=== PATIENT | male | born 1985 | race American Indian/Alaskan Native ===

== ENCOUNTER 2018-10-17 11:42 | Emergency (ER) | payer MEDICAID ==
[2018-10-17 11:54] VITALS: RESP 16; O2SAT 100
--- NOTE | 2018-10-17 12:52 | C.PDOC ---
History Of Present Illness 33 year old male with no prior psychiatric history presents to the ED via EMS for a psychiatric evaluation. The patient states everyone is out to get me, feels paranoid, and he is worried because he has children. States he is inte rested in psychiatric admission. Presents with no medical complaints at this time. Denies suicidal ideations, homicidal ideations, hearing voices, hallucinations, fever, chills, chest pain, shortness of breath, and any other associated symptoms. Chief Complaint (Nursing): Psychiatric Evaluation History Per: Patient History/Exam Limitations: no limitations Associated Symptoms: Paranoia. denies: Suicidal Thoughts Recent travel outside of the [place]: No Additional History Per: EMS Past Medical History Reviewed: Historical Data, Nursing Documentation, Vital Signs Vital Signs: Last Vital Signs Temp 97.8 F 10/17/18 11:49 Pulse 77 10/17/18 11:49 Resp 16 10/17/18 11:49 BP 134/81 10/17/18 11:49 Pulse Ox 100 10/17/18 11:49 - Medical History PMH: Denies: Chronic Kidney Disease Family History: States: Unknown Family Hx - Social History Hx Alcohol Use: No Hx Substance Use: Yes Review Of Systems Except As Marked, All Systems Reviewed And Found Negative. Constitutional: Negative for: Fever, Chills Eyes: Negative for: Vision Change Cardiovascular: Negative for: Chest Pain, Palpitations, Edema, Light Headedness Respiratory: Negative for: Cough, Shortness of Breath Gastrointestinal: Negative for: Nausea, Vomiting, Abdominal Pain Musculoskeletal: Negative for: Neck Pain, Back Pain Skin: Negative for: Rash Neurological: Negative for: Weakness, Numbness, Headache, Dizziness Psych: Positive for: Other ((+) paranoia. (-) homicidal ideations. (-) hearing voices. (-) hallucinations.). Negative for: Anxiety, Depression, Psychosis, Suicidal ideation, Withdrawal Physical Exam - Physical Exam Appears: Well, Non-toxic, No Acute Distress Skin: Normal Color, Warm, Dry Head: Atraumatic, Normacephalic Eye(s): bilateral: Normal Inspection, PERRL, EOMI Ear(s): Bilateral: Normal Nose: Normal Oral Mucosa: Moist Throat: Normal Neck: Normal ROM, Trachea Midline, Supple Cardiovascular: Rhythm Regular, No Murmur Respiratory: Normal Breath Sounds, No Rales, No Rhonchi, No Wheezing Gastrointestinal/Abdominal: Normal Exam, Soft, No Tenderness Back: Normal Inspection, No Paraspinal Tenderness Extremity: Normal ROM (x4) Extremity: Bilateral: Atraumatic, No Pedal Edema, Normal Color And Temperature, Normal ROM Pulses: Left Radial: Normal, Right Radial: Normal Neurological/Psych: Oriented x3, Normal Speech, Normal Motor, Normal Sensation Gait: Steady ED Course And Treatment - Laboratory Results Result Diagrams: 10/17/18 13:27 10/17/18 13:27 O2 Sat by Pulse Oximetry: 100 (RA) Pulse Ox Interpretation: Normal Medical Decision Making Medical Decision Making: Initial plan: -Labs Urinalysis -UDS Progress/Update: 12:53 Spoke with Crisis who agree to evaluate the patient. 14:45 Patient evaluated by special delivery worker Yanely, who offered inpatient admission, but patient declined, asking for discharge home, states he is feeling much bet ter. Patient continues to deny SI, HI, hallucations. Pt is A&Ox3 and capable of making informed decisions. Patient is psychiatrically cleared for discharge home with the diagnosis of adjustment disorder, per Yanely and Dr. Gao. Patient states that he found out his cheated on him this morning, and just needed to come to the hospital to "get some space" Now admitting to Percocet use this morning, 2 pills. Plan of care discussed with patient, and strict instructions given regarding prescriptions, importance of follow up, and signs to return to Emergency Department, to include SI, HI, chest pain, fever, chills, or any other new/worsening symptoms. Patient verbalizes understanding of discussion. Patient A&Ox3, ambulating with steady gait, stable for discharge home. Disposition - Disposition Referrals: [facility] [Outside] [facility] [Outside] Disposition: HOME/ ROUTINE Disposition Time: 14:45 Condition: STABLE Additional Instructions: Refrain from drug or alcohol use Followup with primary doctor within 2 days Return to ER for new/worsening symptoms Instructions: Drug Abuse and Drug Addiction (DC), Prescription Drug Abuse (DC) Forms: [employer] (Serbian), Work Excuse - Clinical Impression Clinical Impression: Adjustment disorder, Prescription drug abuse - PA / FINANCE OFFICER / Resident Statement MD/DO has reviewed & agrees with the documentation as recorded. - Scribe Statement The provider has reviewed the documentation as recorded by the Scribe (Sol Keen) All medical record entries made by the Scribe were at my direction and personally dictated by me. I have reviewed the chart and agree that the record accurately reflects my personal performance of the history, physical exam, medical decision making, and the department course for this patient. I have also personally directed, reviewed, and agree with the discharge instructions and disposition.
[2018-10-17 13:32] LABS: BASO % 0.5 % (0.0-2.0); HEMOGLOBIN 14.6 g/dL (12.0-18.0); MEAN CORPUSCULAR HEMOGLOBIN 29.1 pg (27.0-31.0); MEAN CORPUSCULAR HGB CONC 33.4 g/dL (33.0-37.0); MEAN PLATELET VOLUME 9.1 fL (7.2-11.7); MONO # 0.4 K/uL (0.0-0.8); MONO % 6.1 % (0.0-10.0); NEUT # 4.7 K/uL (1.8-7.0); NEUT % 65.4 % (50.0-75.0); RBC 5.03 Mil/uL (4.40-5.90); RED CELL DISTRIBUTION WIDTH 14.3 % (11.5-14.5); WHITE BLOOD COUNT 7.2 K/uL (4.8-10.8)
[2018-10-17 13:36] LABS: SQUAMOUS EPITHIAL < 1 /hpf (0-5); URINE BILIRUBIN NEGATIVE (NEGATIVE); URINE BLOOD NEGATIVE (NEGATIVE); URINE CLARITY Clear (Clear); URINE COLOR Amber (YELLOW); URINE GLUCOSE (UA) NORMAL (Normal); URINE LEUKOCYTE ESTERASE NEG Leu/uL (Negative); URINE PROTEIN 1+ mg/dL (NEGATIVE)
[2018-10-17 13:50] LABS: ALB/GLOB RATIO 1.3 (1.0-2.1); ALBUMIN 4.3 g/dL (3.5-5.0); ALT/SGPT 24 U/L (21-72); AST/SGOT 26 U/L (17-59); BLOOD UREA NITROGEN 12 mg/dL (9-20); CALCIUM 9.5 mg/dl (8.6-10.4); GFR NON-AFRICAN AMERICAN > 60
[2018-10-17 13:58] LABS: ACETAMINOPHEN < 10.0 ug/mL (10.0-30.0); SALICYLATE < 1.0 mg/dL 1
[2018-10-17 14:11] LABS: BARBITURATES, UR NEGATIVE (NEGATIVE); BENZODIAZEPINES, UR NEGATIVE (NEGATIVE); PHENCYCLIDINE, UR NEGATIVE (NEGATIVE)
[2018-10-17 14:13] LABS: OPIATES, UR POSITIVE (NEGATIVE)
[2018-10-17 15:04] VITALS: BP 132/79; PULSE 78; TEMP 97.9
== END 2018-10-17 15:00 | disposition home or self-care (01) ==
LOC: C.ER 11:42
DX: F43.20 Adjustment disorder, unspecified (principal); F19.10 Other psychoactive substance abuse, uncomplicated